=== PATIENT | male | born 1970 | race Caucasian/White ===

== ENCOUNTER 2019-04-29 09:34 | Inpatient (IN) | payer BC ==
[2019-04-29] MEDS ORDERED: SODIUM CHLORIDE 0.9% 1,000 ML IV STA ×2 (09:52)
--- NOTE | 2019-04-29 09:55 | ED ---
Abdominal Pain HPI - General Chief Complaint: Abdominal Pain Stated Complaint: abdominal pain Time Seen by Provider: 04/29/19 09:41 Source: patient, RN notes reviewed Mode of arrival: ambulatory Limitations: no limitations - History of Present Illness Initial Comments: This a 48-year-old male with a history of rectal cancer status post resection and radiation evaluation who presents with 3 days of lower abdominal pain and cramping mostly right lower quadrant he also states he hasn't really passing gas for last day or so he did have some nausea and vomiting this morning. Decreased oral intake fevers chills or sweats. He does state he had a recent colonoscopy with remarkable findings. no pain with ambulation the pain is worse is 10/10 right now is about 2/10. Patient does not require any medication he states at this time. Is somewhat dull and achy no dysuria no hematuria no history kidney stones. He states he still has his appendix as far as he knows. No prior painful episodes like this. No other modifying factors MD Complaint: abdominal pain - Related Data Home Medications Medication Instructions Recorded Confirmed Acetaminophen Tab [Tylenol Tab] 1,000 mg PO Q6HR PRN 04/29/19 04/29/19 Bisacodyl [Dulcolax] 5 mg PO DAILY PRN 04/29/19 04/29/19 Ondansetron Odt [Zofran Odt] 4 mg PO Q12HR PRN 04/29/19 04/29/19 Allergies Allergy/AdvReac Type Severity Reaction Status Date / Time No Known Allergies Allergy Verified 04/29/19 09:55 Review of Systems ROS Statement: Those systems with pertinent positive or pertinent negative responses have been documented in the HPI. ROS Other: All systems not noted in ROS Statement are negative. Past Medical History Additional Past Medical History / Comment(s): Rectal CA History of Any Multi-Drug Resistant Organisms: None Reported Additional Past Surgical History / Comment(s): Rectal surgery Past Psychological History: No Psychological Hx Reported Smoking Status: Never smoker Past Alcohol Use History: None Reported Past Drug Use History: None Reported General Exam - General Exam Comments Initial Comments: this a well-developed asthenic appearing male who is awake alert oriented 3 Limitations: no limitations General appearance: alert, in no apparent distress Head exam: Present: atraumatic, normocephalic, normal inspection Eye exam: Present: normal appearance, PERRL, EOMI. Absent: scleral icterus, conjunctival injection, periorbital swelling ENT exam: Present: mucous membranes dry Neck exam: Present: normal inspection. Absent: tenderness, meningismus, lymphadenopathy Respiratory exam: Present: normal lung sounds bilaterally. Absent: respiratory distress, wheezes, rales, rhonchi, stridor Cardiovascular Exam: Present: regular rate, normal rhythm, normal heart sounds. Absent: systolic murmur, diastolic murmur, rubs, gallop, clicks GI/Abdominal exam: Present: soft, tenderness (some mild right lower quadrant tenderness palpation no overt guarding rebound masses or bruits are is increase tympany and percussion to the upper abdominal region. No obturator psoas or Rovsing signs at this time.), normal bowel sounds. Absent: distended, guarding, rebound, rigid Rectal exam: Present: deferred Extremities exam: Present: normal inspection, full ROM, normal capillary refill. Absent: tenderness, pedal edema, joint swelling, calf tenderness Back exam: Present: normal inspection Neurological exam: Present: alert, oriented X3, CN II-XII intact Psychiatric exam: Present: normal affect, normal mood Skin exam: Present: warm, dry, intact, normal color. Absent: rash Course Vital Signs 04/29/19 04/29/19 09:35 11:31 Temperature 97.7 F Pulse Rate 86 67 Respiratory 20 18 Rate Blood Pressure 127/84 111/65 O2 Sat by Pulse 99 97 Oximetry Medical Decision Making - Medical Decision Making I did discuss [employer] the patient has . I did discuss case with Dr. Friedman, patient will be admitted for IV fluids at this time and she will be withheld. - Lab Data Result diagrams: 04/29/19 10:03 04/29/19 10:03 Lab Results 04/29/19 04/29/19 04/29/19 Range/Units 10:03 10:03 10:03 WBC 8.5 (3.8-10.6) k/uL RBC 5.16 (4.30-5.90) m/uL Hgb 16.3 (13.0-17.5) gm/dL Hct 47.6 (39.0-53.0) % MCV 92.4 (80.0-100.0) fL MCH 31.7 (25.0-35.0) pg MCHC 34.3 (31.0-37.0) g/dL RDW 11.9 (11.5-15.5) % Plt Count 242 (150-450) k/uL Neutrophils % 91 % Lymphocytes % 5 % Monocytes % 3 % Eosinophils % 0 % Basophils % 0 % Neutrophils # 7.7 (1.3-7.7) k/uL Lymphocytes # 0.4 L (1.0-4.8) k/uL Monocytes # 0.3 (0-1.0) k/uL Eosinophils # 0.0 (0-0.7) k/uL Basophils # 0.0 (0-0.2) k/uL Sodium 139 (137-145) mmol/L Potassium 4.3 (3.5-5.1) mmol/L Chloride 103 (98-107) mmol/L Carbon Dioxide 23 (22-30) mmol/L Anion Gap 13 mmol/L BUN 17 (9-20) mg/dL Creatinine 0.72 (0.66-1.25) mg/dL Est GFR (CKD-EPI)AfAm >90 (>60 ml/min/1.73 sqM) Est GFR (CKD-EPI)NonAf >90 (>60 ml/min/1.73 sqM) Glucose 116 H (74-99) mg/dL Plasma Lactic Acid Kal 1.1 (0.7-2.0) mmol/L Calcium 9.3 (8.4-10.2) mg/dL Total Bilirubin 1.0 (0.2-1.3) mg/dL AST 21 (17-59) U/L ALT 16 (4-49) U/L Alkaline Phosphatase 89 (38-126) U/L Creatine Kinase 45 L (55-170) U/L Troponin I (0.000-0.034) ng/mL Total Protein 7.8 (6.3-8.2) g/dL Albumin 4.8 (3.5-5.0) g/dL Amylase 40 (30-110) U/L Lipase 43 (23-300) U/L Urine Color Urine Appearance (Clear) Urine pH (5.0-8.0) Ur Specific [place] (1.001-1.035) Urine Protein (Negative) Urine Glucose (UA) (Negative) Urine Ketones (Negative) Urine Blood (Negative) Urine Nitrite (Negative) Urine Bilirubin (Negative) Urine Urobilinogen (<2.0) mg/dL Ur Leukocyte Esterase (Negative) 04/29/19 04/29/19 Range/Units 10:03 10:03 WBC (3.8-10.6) k/uL RBC (4.30-5.90) m/uL Hgb (13.0-17.5) gm/dL Hct (39.0-53.0) % MCV (80.0-100.0) fL MCH (25.0-35.0) pg MCHC (31.0-37.0) g/dL RDW (11.5-15.5) % Plt Count (150-450) k/uL Neutrophils % % Lymphocytes % % Monocytes % % Eosinophils % % Basophils % % Neutrophils # (1.3-7.7) k/uL Lymphocytes # (1.0-4.8) k/uL Monocytes # (0-1.0) k/uL Eosinophils # (0-0.7) k/uL Basophils # (0-0.2) k/uL Sodium (137-145) mmol/L Potassium (3.5-5.1) mmol/L Chloride (98-107) mmol/L Carbon Dioxide (22-30) mmol/L Anion Gap mmol/L BUN (9-20) mg/dL Creatinine (0.66-1.25) mg/dL Est GFR (CKD-EPI)AfAm (>60 ml/min/1.73 sqM) Est GFR (CKD-EPI)NonAf (>60 ml/min/1.73 sqM) Glucose (74-99) mg/dL Plasma Lactic Acid Kal (0.7-2.0) mmol/L Calcium (8.4-10.2) mg/dL Total Bilirubin (0.2-1.3) mg/dL AST (17-59) U/L ALT (4-49) U/L Alkaline Phosphatase (38-126) U/L Creatine Kinase (55-170) U/L Troponin I <0.012 (0.000-0.034) ng/mL Total Protein (6.3-8.2) g/dL Albumin (3.5-5.0) g/dL Amylase (30-110) U/L Lipase (23-300) U/L Urine Color Yellow Urine Appearance Clear (Clear) Urine pH 5.5 (5.0-8.0) Ur Specific [place] 1.031 (1.001-1.035) Urine Protein Trace H (Negative) Urine Glucose (UA) Negative (Negative) Urine Ketones 4+ H (Negative) Urine Blood Negative (Negative) Urine Nitrite Negative (Negative) Urine Bilirubin Negative (Negative) Urine Urobilinogen 2.0 (<2.0) mg/dL Ur Leukocyte Esterase Negative (Negative) - Radiology Data Radiology results: report reviewed ( did complete report), image reviewed Disposition Clinical Impression: Partial small bowel obstruction, History of rectal cancer Disposition: ADMITTED IP TO THIS HOSP Condition: Fair Referrals: Indy Martinez MD [Primary Care Provider] - 1-2 days
[2019-04-29] MEDS ORDERED: KETOROLAC 30 MG/ML 1 ML VIAL IVP STA (10:14)
[2019-04-29 10:22] LABS: Basophils % (A) 0 %; Eosinophils % (A) 0 %; HCT 47.6 % (39.0-53.0); HGB 16.3 gm/dL (13.0-17.5); Lymphocytes # (A) 0.4 k/uL (1.0-4.8); Lymphocytes % (A) 5 %; MCH 31.7 pg (25.0-35.0); MCHC 34.3 g/dL (31.0-37.0); MCV 92.4 fL (80.0-100.0); Monocytes # (A) 0.3 k/uL (0-1.0); Monocytes % (A) 3 %; Neutrophils # (A) 7.7 k/uL (1.3-7.7); Neutrophils % (A) 91 %; Platelet Count 242 k/uL (150-450); RBC 5.16 m/uL (4.30-5.90); RDW 11.9 % (11.5-15.5); WBC 8.5 k/uL (3.8-10.6)
[2019-04-29 10:24] LABS: Appearance,Urine Clear (Clear); Bilirubin,Urine Negative (Negative); Blood,Urine Negative (Negative); Color,Urine Yellow; Glucose,Urine (UA) Negative (Negative); Ketones,Urine 4+ (Negative); Leukocyte Esterase,Urine Negative (Negative); Nitrite,Urine Negative (Negative); PH, Urine 5.5 (5.0-8.0); Protein,Urine Trace (Negative); Specific Gravity,Urine 1.031 (1.001-1.035)
[2019-04-29 10:37] LABS: ALT 16 U/L (4-49); AST 21 U/L (17-59); African American GFR (CKD) >90 (>60 ml/min/1.73 sqM); Albumin 4.8 g/dL (3.5-5.0); Alkaline Phosphatase 89 U/L (38-126); Amylase 40 U/L (30-110); Anion Gap 13 mmol/L; Blood Urea Nitrogen 17 mg/dL (9-20); Calcium 9.3 mg/dL (8.4-10.2); Carbon Dioxide 23 mmol/L (22-30); Chloride 103 mmol/L (98-107); Creatine Kinase 45 U/L (55-170); Glucose 116 mg/dL (74-99); Non-African American GFR(CKD) >90 (>60 ml/min/1.73 sqM); Potassium 4.3 mmol/L (3.5-5.1); Sodium 139 mmol/L (137-145); Total Protein 7.8 g/dL (6.3-8.2)
--- NOTE | 2019-04-29 10:48 | XR ---
EXAMINATION TYPE: XR abdomen 2V DATE OF EXAM: 04/29/2019 10:43 AM CLINICAL HISTORY: Nausea and right lower abdominal pain. TECHNIQUE: Supine and upright views of the abdomen were obtained. COMPARISON: None. FINDINGS: There are multiple loops of dilated small bowel measuring up to 3.8 cm with differential ai r-fluid levels in the left upper quadrant. Surgical sutures are seen in the right lower quadrant over lying the L4-L5 transverse processes. Paucity of bowel gas in the low abdomen. Lung bases are well ae rated. Osseous structures are intact. No pneumoperitoneum. IMPRESSION: Findings concerning for small bowel obstruction with differential air-fluid levels and di lated loops of small bowel in the left abdomen.
[2019-04-29] MEDS ORDERED: IOPAMIDOL CONTRAST (ORAL USE) VIAL PO PRN (11:18)
--- NOTE | 2019-04-29 12:26 | CT ---
EXAMINATION TYPE: CT abdomen pelvis w con DATE OF EXAM: 04/29/2019 COMPARISON: None HISTORY: Right sided abdominal pain. History of rectal cancer. CT DLP: 721.4 mGycm Automated exposure control for dose reduction was used. TECHNIQUE: Helical acquisition of images was performed from the lung bases through the pelvis. CONTRAST: Performed with Oral Contrast and with IV Contrast, patient injected with 100ml mL of Isovue 300. Jacques atric prepped. FINDINGS: LUNG BASES: No significant abnormality is appreciated. LIVER/GB: Nonspecific subcentimeter hypodense lesion axial image 13 anterior liver nonspecific slight ly lobulated just over 1 cm hypodense lesion left hepatic dome axial image 12. PANCREAS: No significant abnormality is seen. SPLEEN: Trace perisplenic ascites posterior superior aspect. ADRENALS: No significant abnormality is seen. KIDNEYS: A few small simple appearing thin-walled cysts throughout both kidneys seen best on delayed phase images. No hydronephrosis bilaterally. FREE AIR: No free air is visualized. RETROPERITONEAL ADENOPATHY: None visualized REPRODUCTIVE ORGANS: Occasional pelvic phleboliths. Prostate upper limits of normal. URINARY BLADDER: No significant abnormality is seen. PELVIC ADENOPATHY: None visualized. OSSEOUS STRUCTURES: No significant abnormality is seen. BOWEL: Evaluation bowel suboptimal secondary to essentially lack of contrast. No suspicious dilatati on of stomach or duodenal sweep. There are surgical sutures from small bowel anastomosis right mid ab domen. Up to this point there is fluid-filled prominence and mild dilatation up to 3.2 cm coronal tyree ge 29. Air-fluid levels are present. There are nondilated small bowel loops in the left abdomen. Flui d and fecal material is seen in nondistended colon. Some scattered colonic diverticula. Mild wall thi ckening in the left colon through the rectum. Abnormal soft tissue presacral space presumed related t o treatment changes for known rectal cancer. Terminal ileum is not dilated near normal-appearing Appe ndix coronal image 48. This nondilated fluid-filled bowel can be tracked to the level of sutures. OTHER: None. IMPRESSION: 1. There is partial distal small bowel obstruction with transition point at sutures or bowel anastomo sis right mid to lower abdomen. Abnormal bowel prominence and/or dilatation does not extend to the je junal loops in the left abdomen.
[2019-04-29] MEDS ORDERED: NALOXONE 0.4 MG/ML 1 ML VIAL IV PRN (14:51)
[2019-04-29] MEDS ORDERED: KETOROLAC 30 MG/ML 1 ML VIAL IVP PRN (14:57)
[2019-04-29] MEDS ORDERED: ONDANSETRON 4 MG/2 ML VIAL IVP PRN (14:57)
[2019-04-29] MEDS: SODIUM CHLORIDE 0.9% 1,000 ML IV SCH (16:00)
[2019-04-30] MEDS: SODIUM CHLORIDE 0.9% 1,000 ML IV SCH ×4 (00:01→22:57)
[2019-04-30] MEDS: PANTOPRAZOLE 40 MG/10 ML VIAL IV SCH (10:09)
--- NOTE | 2019-04-30 11:32 | P.GSHP ---
<Brianne Watts A - Last Filed: 04/30/19 11:30> History of Present Illness H&P Date: 04/30/19 Chief Complaint: Abdominal pain CHIEF COMPLAINT: Abdominal pain HISTORY OF PRESENT ILLNESS: 48-year-old male with history of rectal cancer who presented to the hospital with abdominal pain. Patient reports he was diagnosed in October 2017 with rectal cancer. He underwent chemo and radiation. He also underwent bowel resection at [facility] in March 2018. The patient reports he had a colonoscopy performed at [facility] in March 2019 and was told everything looked well. Patient reports he follows with Dr. Adams prior to having bowel surgery but has not seen him since that time. Patient reports he began having abdominal pain on Friday. He states pain is localized to the right side and felt like a cramping sensation. He felt full and thought he might have to have a bowel movement. He reports taking a Dulcolax and had a bowel movement afterwards. He began having pain again on Friday. He took another Dulcolax but did not have a bowel movement. He reports on Friday he took a enema and had a bowel movement. He also reports some nausea and vomiting on the day. Patient decided to come to the emergency room for further vinicio luation. Patient examined this morning at the bedside. He reports passing flatus. He states he had 2 loose bowel movements overnight. Denies further nausea or vomiting. He does complain of mild right-sided abdominal pain. PAST MEDICAL HISTORY: See list. PAST SURGICAL HISTORY: See list. SOCIAL HISTORY: No illicit drug use. REVIEW OF SYSTEMS: CONSTITUTIONAL: Denies fever or chills. HEENT: Denies blurred vision, vision changes, or eye pain. Denies hemoptysis CARDIOVASCULAR: Denies chest pain or pressure. RESPIRATORY: No shortness of breath. GASTROINTESTINAL: Refer to HPI for pertinent findings HEMATOLOGIC: Denies bleeding disorders. GENITOURINARY: Denies any blood in urine. SKIN: Denies pruitis. Denies rash. PHYSICAL EXAM: VITAL SIGNS: Reviewed. GENERAL: Well-developed in no acute distress. HEENT: No sclera icterus. Extraocular movements grossly intact. Moist buccal mucosa. Head is atraumatic, normocephalic. ABDOMEN: Soft. Nondistended. Nontender. Small scar to right lower quadrant from previous bowel surgery. NEUROLOGIC: Alert and oriented. Cranial nerves II through XII grossly intact. LABORATORY DATA: WBC 8.5. Hemoglobin 16.3. Platelet count 242. IMAGING: CT abdomen and pelvis: Partial distal small bowel obstruction with transition point as sutures or bowel anastomosis right mid to lower abdomen. Abnormal bowel prominence and/or dilation does not extend to the jejunal loops in the left abdomen. ASSESSMENT: 1. Abdominal pain 2. Possible small bowel obstruction at previous bowel anastomosis site 3. History of rectal cancer, treated with chemo, radiation, and bowel resection PLAN: Begin ice chips only. Continue bowel rest Consult PCP for medical management No surgical intervention recommended at this time Dr. Friedman will re-evaluate patient this afternoon Nurse practitioner note has been reviewed by physician. Signing provider agrees with the documented findings, assessment, and plan of care. Past Medical History Additional Past Medical History / Comment(s): 03/2018 Rectal CA-had chemo/radiation prior to surgery. History of Any Multi-Drug Resistant Organisms: None Reported Past Surgical History: Tubal Ligation Additional Past Surgical History / Comment(s): Rectal surgery with temporary ileostomy, colonoscopy about one month ago-normal Past Anesthesia/Blood Transfusion Reactions: No Reported Reaction Smoking Status: Never smoker - Past Family History Father Family Medical History: Hypertension Mother Family Medical History: Cancer Additional Family Medical History / Comment(s): Mother had breast and skin cancer. Medications and Allergies Home Medications Medication Instructions Recorded Confirmed Type Acetaminophen Tab [Tylenol Tab] 1,000 mg PO Q6HR PRN 04/29/19 04/29/19 History Bisacodyl [Dulcolax] 5 mg PO DAILY PRN 04/29/19 04/29/19 History Ondansetron Odt [Zofran Odt] 4 mg PO Q12HR PRN 04/29/19 04/29/19 History Allergies Allergy/AdvReac Type Severity Reaction Status Date / Time No Known Allergies Allergy Verified 04/29/19 09:55 Surgical - Exam Vital Signs Temp Pulse Resp BP Pulse Ox 97.7 F 86 20 127/84 99 04/29/19 09:35 04/29/19 09:35 04/29/19 09:35 04/29/19 09:35 04/29/19 09:35 Results - Labs 04/29/19 10:03 04/29/19 10:03 Abnormal Lab Results - Last 24 Hours (Table) 04/29/19 Range/Units 10:03 Urine Ketones 4+ H (Negative) <Siddharth Friedman - Last Filed: 04/30/19 19:50> History of Present Illness As above. Patient with crampy abdominal pain. Symptoms have been intermittent in nature. Will check repeat abdominal x-rays. Begin clear liquids. Patient may benefit from small bowel series or MR enterography depending on his progress. Tentatively plan advancing diet tomorrow and possible discharge tomorrow if tolerates diet. Surgical - Exam Vital Signs Temp Pulse Resp BP Pulse Ox 97.7 F 86 20 127/84 99 04/29/19 09:35 04/29/19 09:35 04/29/19 09:35 04/29/19 09:35 04/29/19 09:35 Results - Labs 04/29/19 10:03 04/29/19 10:03
--- NOTE | 2019-04-30 14:34 | P.CONS ---
History of Present Illness - Reason for Consult partial small bowel obstruction - History of Present Illness patient is pleasant 48-year-old gentleman came in with complaints of moderate to severe abdominal cramping the right lower abdomen along with nausea. Patient last movement was about 3-4 days ago patient did take any enemaon mental status. Patient is found to have partial small bowel obstruction at the surgical site area where he had a bowel resection for rectal cancer patient underwent radiatio n therapy and received chemo in the past patient has remained in remission for rectal cancer. Patient did have vomiting yesterday. Patient presently did pass gas with a loose bowel movement last night. Patient denied any fever chills. His abdominal pain significantly improved Review of Systems REVIEW OF SYSTEMS: CONSTITUTIONAL: No fever, no malaise, no fatigue. HEENT: No recent visual problems or hearing problems. Denied any sore throat. CARDIOVASCULAR: No chest pain, orthopnea, PND, no palpitations, no syncope. PULMONARY: No shortness of breath, no cough, no hemoptysis. GASTROINTESTINAL: as mentioned in HPI NEUROLOGICAL: No headaches, no weakness, no numbness. HEMATOLOGICAL: Denies any bleeding or petechiae. GENITOURINARY: Denies any burning micturition, frequency, or urgency. MUSCULOSKELETAL/RHEUMATOLOGICAL: Denies any joint pain, swelling, or any muscle pain. ENDOCRINE: Denies any polyuria or polydipsia. The rest of the 14-point review of systems is negative. Past Medical History Additional Past Medical History / Comment(s): 03/2018 Rectal CA-had chemo/radiation prior to surgery. History of Any Multi-Drug Resistant Organisms: None Reported Past Surgical History: Tubal Ligation Additional Past Surgical History / Comment(s): Rectal surgery with temporary ileostomy, colonoscopy about one month ago-normal Past Anesthesia/Blood Transfusion Reactions: No Reported Reaction Smoking Status: Never smoker - Past Family History Father Family Medical History: Hypertension Mother Family Medical History: Cancer Additional Family Medical History / Comment(s): Mother had breast and skin cancer. Medications and Allergies Home Medications Medication Instructions Recorded Confirmed Type Acetaminophen Tab [Tylenol Tab] 1,000 mg PO Q6HR PRN 04/29/19 04/29/19 History Bisacodyl [Dulcolax] 5 mg PO DAILY PRN 04/29/19 04/29/19 History Ondansetron Odt [Zofran Odt] 4 mg PO Q12HR PRN 04/29/19 04/29/19 History Allergies Allergy/AdvReac Type Severity Reaction Status Date / Time No Known Allergies Allergy Verified 04/29/19 09:55 Physical Exam Vitals: Vital Signs Temp Pulse Pulse Resp BP BP Pulse Ox 04/30/19 11:40 97.9 F 65 16 105/59 100 04/30/19 08:00 57 L 16 04/30/19 06:57 97.6 F 57 L 16 101/62 95 04/29/19 23:00 98.2 F 54 L 12 100/57 97 04/29/19 16:01 67 18 105/62 97 Intake and Output 04/29/19 04/30/19 04/30/19 22:59 06:59 14:59 Intake Total 1000 Balance 1000 Intake: IV 1000 Sodium Chloride 0.9% 1, 1000 000 ml @ 125 mls/hr IV . Q8H [facility] Rx#:[id number] Other: Voiding Method Toilet Toilet Toilet # Voids 1 # Bowel Movements 1 Weight 65.771 kg PHYSICAL EXAMINATION: GENERAL: The patient is alert and oriented x3, not in any acute distress. Well developed, well nourished. HEENT: Pupils are round and equally reacting to light. EOMI. No scleral icterus. No conjunctival pallor. Normocephalic, atraumatic. No pharyngeal erythema. No thyromegaly. CARDIOVASCULAR: S1 and S2 present. No murmurs, rubs, or gallops. PULMONARY: Chest is clear to auscultation, no wheezing or crackles. ABDOMEN: Soft, nontender, bowel sounds is still sluggish no rebound or rigidity MUSCULOSKELETAL: No joint swelling or deformity. EXTREMITIES: No cyanosis, clubbing, or pedal edema. NEUROLOGICAL: Gross neurological examination did not reveal any focal deficits. SKIN: No rashes. Results CBC & Chem 7: 04/29/19 10:03 04/29/19 10:03 Assessment and Plan Plan: Partial small bowel obstruction: Continue with bowel rest IV fluids. -history of rectal cancer in remission status post chemoradiation ,-patient has glucosuria, we'll order hemoglobin A1c.
[2019-04-30 15:33] VITALS: BMI 20.2
--- NOTE | 2019-04-30 20:48 | XR ---
EXAMINATION TYPE: XR abdomen 2V DATE OF EXAM: 04/30/2019 COMPARISON: Yesterday HISTORY: Nausea TECHNIQUE: Upright and supine views FINDINGS: There is no sign of intestinal obstruction or pneumoperitoneum. Fecal pattern is fairly nor mal. There are no pathologic calcifications over the kidneys. Lung bases are clear. IMPRESSION: Nonacute abdomen. There is clearing of the dilated small bowel loops compared to yesterda y.
[2019-05-01] MEDS: PANTOPRAZOLE 40 MG/10 ML VIAL IV SCH (07:49)
[2019-05-01] MEDS: SODIUM CHLORIDE 0.9% 1,000 ML IV SCH (07:49)
[2019-05-01 11:18] LABS: Hemoglobin A1C 9.8 % (4.0-6.0)
[2019-05-01 11:46] VITALS: BP 112/68; PULSE 54; RESP 18; TEMP 97.8
--- NOTE | 2019-05-01 11:46 | P.PN ---
Progress Note - Text Progress Note Date: 05/01/19 the patient feels well. He is tolerating liquids. He's had no further pain. He has had flatus and a small bowel movement. On exam is lesser stable. His evidence soft. Resolving partial small bowel charge. Patient was discharged home today. He'll follow-up with Dr. Friedman next week.
[2019-05-02] MEDS ORDERED: PANTOPRAZOLE 40 MG TABLET PO SCH (09:00)
== END 2019-05-01 12:05 | disposition home or self-care (01) | DRG 390 ==
LOC: EC 09:34 → 5NMEDONC 14:51
PROVIDERS: ADMIT Surgery; ATTEND Surgery
DX: K56.690 Other partial intestinal obstruction (principal); Z85.048 Personal history of other malignant neoplasm of rectum, rectosigmoid junction, and anus; Z92.3 Personal history of irradiation; Z92.21 Personal history of antineoplastic chemotherapy; Z90.49 Acquired absence of other specified parts of digestive tract; Z80.8 Family history of malignant neoplasm of other organs or systems; Z82.49 Family history of ischemic heart disease and other diseases of the circulatory system
CPT/HCPCS: 36415; 74019; 74177; 80053; 81003; 82150; 82550; 83036; 83605; 83690; 84484; 85025; 96361; 96374; 99285